=== PATIENT | male | born 1990 | race Caucasian/White ===

== ENCOUNTER 2019-04-22 12:46 | Outpatient (CLI) | payer BC ==
--- NOTE | 2019-04-22 15:09 | ULT ---
ULTRASOUND OF CHEST: Date: 04/22/2019 HISTORY: Patient has a lump in the midline and states it has been there for 4-5 years and not changing. FINDINGS: The area of interest is in the midline and appears to be in the xiphoid process region. I do not see any signs of any soft tissue mass. IMPRESSION: No soft tissue mass identified. The area of concern may be related to the xiphoid process. A CT may b e helpful in assessment if indicated. POS: [facility]
== END 2019-04-22 12:47 | disposition home or self-care (01) ==
LOC: SCSULT 12:46
PROVIDERS: ATTEND Family Medicine
DX: R22.2 Localized swelling, mass and lump, trunk (principal)